=== PATIENT | female | born 1955 | race Caucasian/White ===

== ENCOUNTER 2019-02-05 19:19 | Emergency (ER) | payer OTHER, SELFPAY ==
[2019-02-05 19:20] VITALS: BP 187/98; PULSE 90; RESP 18; TEMP 36.7; O2SAT 96; BMI 33.8
--- NOTE | 2019-02-05 19:55 | RAD_ITS ---
STUDY: X-RAY CHEST REASON FOR EXAM: Female, 63 years old. Cough TECHNIQUE: PA and lateral views of the chest. COMPARISON: None. FINDINGS: There is hyperinflation of the lungs consistent with chronic obstructive lung disease (COPD). Lungs are clear. There is no demonstrated pleural abnormality. Sternal cerclage wires are present from a prior sternotomy. Mild cardiomegaly. Normal mediastinum and tristen. Normal visualized pulmonary arteries. Normal visualized aortic arch and descending thoracic aorta. Artificial heart valve. Normal visualized thoracic spine. Normal visualized ribs, clavicles, and shoulders. There is no demonstrated abnormality of the visualized soft tissue structures of the upper abdomen. RAD/Chest PA and Lateral IMPRESSION: No acute cardiopulmonary disease. COPD. Electronically Signed: Horace Jones DO at 20:18 EDT Tel , Service support ,
--- NOTE | 2019-02-05 20:59 | ED.DCSUM_ITS ---
History of Present Illness Chief Complaint: Cough Narrative: Patient presenting for evaluation due to cough. Patient reports that she was exposed to black mold in the house, and states that she has had slightly increasing cough. She has an underlying history of COPD. She denies any fevers chest pain. She denies significant shortness of breath associated with this. Patient's daughter wanted her checked out so the patient came to the emergency department. Past Medical History - Allergies and Home Meds Allergies/Adverse Reactions: Allergies cefuroxime [From Ceftin] Allergy (Verified 02/05/19 19:23) Hives ibuprofen Allergy (Verified 02/05/19 19:23) Hives Penicillins Allergy (Verified 02/05/19 19:23) Hives Sulfa (Sulfonamide Antibiotics) Allergy (Verified 02/05/19 19:23) Hives Primary Care Physician: CAROLYNE BLACK [Other] Past Medical History: - - COPD Smoking Status: Current every day smoker Review of Systems All systems negative except as indicated Respiratory: Reports: Cough Physical Exam Vital Signs/Narrative: Vital Signs Temp Pulse Resp BP Pulse Ox 02/05/19 19:20 98.0 F 90 18 187/98 H 96 General: Well nourished, Well developed, No Acute Distress Head: Normocephalic, Atraumatic Eyes: Perrl, EOMI ENT: Moist mucous membranes, No rhinorrhea Neck: Supple, Nontender Cardiovascular: Regular rate, Regular rhythm, No murmurs Respiratory: No distress, Chest nontender, Wheezing Abdomen: Soft, Nontender, Nondistended, Normal bowel sounds Back: Nontender, Normal Inspection Extremities: Nontender, No edema Skin: Normal color, No rash Neurological: Alert, Oriented x3, Cranial nerves II-XII grossly intact, Normal Strength, Normal Sensation Psychological: Normal affect, Normal Mood Diagnostic/Tx/Re-eval - Medical Decision Making Patient presented secondary to black mold exposure. She did have some mild wheezing. Chest x-ray was obtained which shows signs consistent with COPD. Patient likely has mild exacerbation secondary to her exposure to the irritants. Patient will be placed on a burst of prednisone. She was given reassurance an d discharged. ED Disposition - Plan for ED Patient: Disposition: Home or Assisted Living Diagnosis: COPD exacerbation Instructions: Copd Flare Prescriptions: Prednisone [Deltasone] 40 mg PO DAILY #10 tab Prescription Printed Referrals: CAROLYNE BLACK [Other] - 1 Week
[2019-02-05] MEDS: predniSONE 20 MG Tablet 40 MG PO (21:07)
== END 2019-02-05 21:09 | disposition home or self-care (01) ==
PROVIDERS: Emergency Provider Emergency Medicine
DX: J44.1 Chronic obstructive pulmonary disease with (acute) exacerbation (principal); Z77.120 Contact with and (suspected) exposure to mold (toxic); F17.200 Nicotine dependence, unspecified, uncomplicated
CPT/HCPCS: 71046; 99283

== ENCOUNTER 2019-10-15 13:23 | Emergency (ER) | payer OTHER, SELFPAY ==
[2019-10-15 13:25] VITALS: BP 167/83; PULSE 59; RESP 17; TEMP 36.6; O2SAT 97; BMI 31.9
--- NOTE | 2019-10-15 13:43 | ED.VIS.GEN ---
History of Present Illness Chief Complaint: Hypertension Informant: Patient Onset: - - Onset unknown. Took blood pressure today and was elevated Context: - - Unknown Timing: - - Unknown Quality: Blood pressure 168 systolic Location: Home Current Severity: Mild Maximum Severity: Mild Worsened by: Stressed with daughter Relieved by: Nothing Associated Symptoms: Tingling in her hand secondary to blood pressure cuff Narrative: Patient is a 64-year-old woman with known history of hypertension on 3 medications who presents with elevated blood pressure. She states she had a slight headache. She complains of tingling in her hand. This was the side she measured her blood pressure. She denies any visual, ocular auditory symptoms. Denies trouble with speech or swallowing. She denies clumsiness or falling. She denies cardiac or respiratory symptoms. She denies chest pain radiating to the back or back pain. She reports confrontation with daughter regarding living situation and specifically daughter's boyfriend living at her residence. 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 Status: Acute Past Medical History - Allergies and Home Meds Allergies/Adverse Reactions: Allergies cefuroxime [From Ceftin] Allergy (Verified 10/15/19 13:24) Hives ibuprofen Allergy (Verified 10/15/19 13:24) Hives Penicillins Allergy (Verified 10/15/19 13:24) Hives Sulfa (Sulfonamide Antibiotics) Allergy (Verified 10/15/19 13:24) Hives Primary Care Physician: NOT,DEFINED [NON-STAFF] - Prior records reviewed: Yes Surgical History: noncontributory Lives: With Family Smoking Status: Current every day smoker Alcohol: None Drugs: None Review of Systems General: Denies: Chills, Fever, Malaise, Subjective, Sweats Eyes: Denies: Visual changes - bilaterally, Blurred Vision - bilaterally, Diplopia ENT: Denies: Bilateral ear pain, Rhinorrhea, Sore throat Cardiovascular: Denies: Chest pain, Palpitations Respiratory: Denies: Dyspnea, Cough, Dyspnea on exertion, Orthopnea, Paroxysmal nocturnal dyspnea Gastrointestinal: Denies: Abdominal pain, Nausea, Vomiting, Diarrhea, Melena, Hematochezia Genitourinary: Denies: Dysuria, Hematuria, Frequency Musculoskeletal: Denies: Myalgias, Arthralgias, Neck pain, Back pain, Swelling, Extremity Pain, -, - Skin: Denies: Rash, Wounds Neurological: Reports: Headache. Denies: Weakness, Parasthesia, Numbness, -, - Psych: Reports: Anxiety. Denies: Depression, Suicidal thoughts, Suicidal ideations, -, - Endocrine: Denies: Polyuria, Polydipsia Hematologic: Denies: Easy bruising, Easy bleeding Physical Exam Vital Signs/Narrative: Vital Signs Temp Pulse Resp BP Pulse Ox 10/15/19 13:25 97.9 F 59 L 17 167/83 H 97 Inital Vital Signs reviewed: Yes General: Well nourished, Well developed, No Acute Distress Head: Normocephalic, Atraumatic Eyes: Perrl, EOMI. Negative for: Pale conjunctiva, Scleral icterus ENT: Moist mucous membranes, No rhinorrhea Neck: Supple, Nontender, No lymphadenopathy, No JVD Cardiovascular: Regular rate, Regular rhythm, No murmurs, - - Click noted secondary to prosthetic aortic valve Respiratory: No distress, CTA bilaterally, Chest nontender Abdomen: Soft, Nontender, Nondistended, Normal bowel sounds, No masses Rectal: Deferred Back: Nontender, Normal Inspection Extremities: Nontender, No edema Skin: Normal color, No rash, No Trauma. Negative for: Cyanosis, Diaphoresis, Jaundice Neurological: Alert, Oriented x3, Cranial nerves II-XII grossly intact, Normal Strength, Normal Sensation Psychological: Normal affect Diagnostic/Tx/Re-eval Laboratory Results 10/15/19 10/15/19 13:51 14:20 Sodium 139 Potassium 4.1 Chloride 107 Carbon Dioxide 27.0 Anion Gap 5 BUN 12 Creatinine 0.84 Estim Creat Clear Calc 51.06 Est GFR (MDRD) Af Amer 87 Est GFR (MDRD) Non-Af 72 BUN/Creatinine Ratio 14.2 Glucose 139 H Calcium 9.0 Urine Color Yellow Urine Clarity Cloudy Urine pH 7.0 Ur Specific [place] 1.010 Urine Protein 15 H Urine Glucose (UA) Normal Urine Ketones Negative Urine Occult Blood 150 H Urine Nitrite Positive H Urine Bilirubin Negative Urine Urobilinogen Normal Ur Leukocyte Esterase 25 H Urine RBC 0-5 SEEN Urine WBC 0-5 SEEN Ur Squamous Epith Cells 0-5 SEEN Urine Bacteria 3+ Urine Mucus 0 SEEN There is no evidence of endorgan injury. Patient has bacteria with positive nitrites. Will treat with short course of Macrobid. Since there is no evidence of endorgan injury no adjustments made to blood pressure meds. Her most recent blood pressure is 146 systolic. She was instructed follow-up with her primary care physician. - Medical Decision Making She was placed on a monitor. Will monitor blood pressure and a basic metabolic panel and UA were obtained to evaluate for endorgan injury. ED Disposition - Plan for ED Patient: Disposition: Home or Assisted Living Diagnosis: Hypertension, Bacteria in urine, long term care social worker current use of anticoagulant Prescriptions: Nitrofurantoin Macrocrystals [Macrobid] 100 mg PO Q12 #10 cap Transmission Status: Pending to [id number] Referrals: NOT,DEFINED [NON-STAFF] - Doctor,Your [STAFF PHYSICIAN] - 1-2 Weeks
[2019-10-15 14:11] LABS: Anion Gap 5 (5-15); BUN 12 mg/dL (7-18); BUN/Creat Ratio 14.2 RATIO (10-20); Chloride 107 mmol/L (98-107); Creatinine, Serum 0.84 mg/dL (0.55-1.02); EST Glomerular Filtration Rate 72 mL/min (>60); Est Glom Filt Rate - Afr Amer 87 mL/min (>60); Estimated Creatinine Clearance 51.06 ml/min; Glucose 139 mg/dL (74-106); Potassium 4.1 mmol/L (3.5-5.1); Sodium Level 139 mmol/L (136-145)
[2019-10-15 14:26] LABS: Mucous, Urine 0 SEEN /hpf (<or=2+)
[2019-10-15 14:31] LABS: Color, Urine Yellow (Yellow); Glucose, Dipstick Normal (Normal); Ketone-Dipstick Negative (Negative); Leukocyte Esterase-Dipstick 25 /ul (Negative); Nitrite-Dipstick Positive (Negative); Occult Blood-Urine 150 /ul (Negative); Protein-Dipstick 15 mg/dl (Negative); Urine Bilirubin Dipstick Negative (Negative); Urine Clarity Cloudy (Clear); Urine Urobilinogen Normal (Normal)
[2019-10-15 14:39] LABS: Bacteria 3+ /hpf (None Seen); Red Blood Cells-Urine 0-5 SEEN /hpf (0-5); Squamous Epithelial Cells - UA 0-5 SEEN /hpf (5-10); White Blood Cells 0-5 SEEN /hpf (0-5)
[2019-10-15 15:54] VITALS: BP 149/132; PULSE 59; RESP 18; O2SAT 95
[2019-10-15] MEDS: Nitrofurantoin Macrocrystals 100 MG Capsule PO (15:59)
== END 2019-10-15 16:04 | disposition home or self-care (01) ==
PROVIDERS: Emergency Provider Emergency Medicine
DX: R82.71 Bacteriuria (principal); I10 Essential (primary) hypertension; Z95.2 Presence of prosthetic heart valve; Z79.01 Long term (current) use of anticoagulants; Z79.899 Other long term (current) drug therapy; F17.200 Nicotine dependence, unspecified, uncomplicated
CPT/HCPCS: 80048; 81001; 99285; A4216

== ENCOUNTER 2019-12-26 13:43 | Emergency (ER) | payer OTHER, SELFPAY ==
[2019-12-26 13:44] VITALS: BP 144/104; PULSE 98; RESP 18; TEMP 36.9; O2SAT 97; BMI 32.2
--- NOTE | 2019-12-26 14:00 | ED.DCSUM_ITS ---
History of Present Illness Chief Complaint: Lower Extremity Injury Narrative: Next he 4-year-old female with past medical history of hypertension and diabetes presents with left foot pain. States it began hurting this morning. States that she was running around taking care of her great grandchild yesterday. [place] that she may have twisted it at some point yesterday. Denies any trauma. Describes it as aching. States she has been taking Tylenol with mild relief. Numbness or tingling. Past Medical History - Allergies and Home Meds Allergies/Adverse Reactions: Allergies cefuroxime [From Ceftin] Allergy (Verified 12/26/19 13:46) Hives ibuprofen Allergy (Verified 12/26/19 13:46) Hives Penicillins Allergy (Verified 12/26/19 13:46) Hives Sulfa (Sulfonamide Antibiotics) Allergy (Verified 12/26/19 13:46) Hives Primary Care Physician: Steffi Carlos DO [Primary Care Provider] - Surgical History: noncontributory Lives: Spouse/ Significant Other Smoking Status: Current every day smoker Alcohol: None Drugs: None Review of Systems General: Denies: Chills, Fever, Sweats Eyes: Denies: Visual changes - bilaterally, Diplopia ENT: Denies: Rhinorrhea, Sore throat Cardiovascular: Denies: Chest pain, Palpitations Respiratory: Denies: Dyspnea, Cough, Dyspnea on exertion Gastrointestinal: Denies: Abdominal pain, Nausea, Vomiting, Diarrhea, Melena, Hematochezia Genitourinary: Denies: Dysuria, Hematuria, Frequency Musculoskeletal: Reports: Arthralgias. Denies: Back pain, Extremity Pain Skin: Denies: Rash, Wounds Neurological: Denies: Headache, Weakness, Numbness Physical Exam Vital Signs/Narrative: Vital Signs Temp Pulse Resp BP Pulse Ox 12/26/19 13:44 98.4 F 98 18 144/104 H 97 Inital Vital Signs reviewed: Yes General: Well nourished, Well developed, No Acute Distress Head: Normocephalic, Atraumatic Eyes: Perrl, EOMI ENT: Moist mucous membranes, No rhinorrhea Neck: Supple, Nontender Cardiovascular: Regular rate, Regular rhythm, No murmurs Respiratory: No distress, CTA bilaterally, Chest nontender Abdomen: Soft, Nontender, Nondistended, Normal bowel sounds Back: Nontender, Normal Inspection Extremities: No edema, - - TTP of the left foot. Dorsolateral. No overlying skin changes. Skin: Normal color, No rash Neurological: Alert, Oriented x3, Cranial nerves II-XII grossly intact, Normal Strength, Normal Sensation Psychological: Normal affect, Normal Mood Diagnostic/Tx/Re-eval - Medical Decision Making Appears well nontoxic. Significant delay secondary to radiologic read. I cannot visualize an acute fracture. Likely brain. Patient will be advised on Mesfin wrap, ice, elevation, continue Tylenol at home. Asked to return for new or worsening symptoms. Patient agreeable and discharged home in stable condition. ED Disposition - Plan for ED Patient: Disposition: Home or Assisted Living Diagnosis: Strain of foot, left Instructions: ED Sprain Foot Referrals: Steffi Carlos DO [Primary Care Provider] -
--- NOTE | 2019-12-26 14:07 | RAD_ITS ---
STUDY: X-RAY - LEFT FOOT CLINICAL: Female, 64 years old. NO KNOWN INJURY. PAIN ON TOP OF LEFT FOOT. TECHNIQUE: 3 view(s) of the foot. COMPARISON: None. FINDINGS: Normal talus, calcaneus, and tarsal bones. Normal visualized subtalar, talonavicular, calcaneocuboid, tarsal and tarsometatarsal articulations. There is first metatarsal head bunion formation. Normal metatarsophalangeal joint of the great toe. Normal tibial and fibular sesamoid bones. Normal interphalangeal joint of the great toe. Normal phalanges of the great toe. Normal second through fifth metatarsophalangeal joints. Normal interphalangeal joints and phalanges of the lesser toes. The soft tissue structures are unremarkable. RAD/Foot min 3 Views IMPRESSION: First metatarsal head bunion. There is no evidence of fracture or dislocation. Electronically Signed: Romel Goldstein MD at 16:09 EDT , Service support ,
[2019-12-26 17:46] VITALS: BP 138/89
== END 2019-12-26 17:47 | disposition home or self-care (01) ==
PROVIDERS: Emergency Provider Emergency Medicine; PCP Family Medicine
DX: S99.922A Unspecified injury of left foot, initial encounter (principal); X50.1XXA Overexertion from prolonged static or awkward postures, initial encounter; Y93.9 Activity, unspecified; Y92.9 Unspecified place or not applicable; I10 Essential (primary) hypertension; E11.9 Type 2 diabetes mellitus without complications; Z79.84 Long term (current) use of oral hypoglycemic drugs; Z79.899 Other long term (current) drug therapy; F17.200 Nicotine dependence, unspecified, uncomplicated
CPT/HCPCS: 73630; 99282

== ENCOUNTER 2020-05-30 14:02 | Emergency (ER) | payer OTHER, SELFPAY ==
[2020-05-30 14:03] VITALS: BP 140/105; PULSE 74; RESP 17; TEMP 36.7; O2SAT 97; BMI 31.3
--- NOTE | 2020-05-30 14:26 | ED.DCSUM_ITS ---
History of Present Illness Chief Complaint: Complaint Informant: Patient Narrative: Patient is a 64-year-old female who presents to the emergency department for suprapubic abdominal discomfort. Her symptoms have been present since this past . She has had this before in the past related to urinary tract infections. Last time she was on an antibiotic for this was 4 months ago. She denies dysuria. At the onset of symptoms she did have blood in the urine but this since resolved. She is on Coumadin for history of aortic valve replacement. She just had her INR checked last week and it was in the 4 range. They had her increase her greens when eating which she has done. She denies any dysuria. She is on medications for urinary incontinence for the past year and a half. She states she does get frequent UTIs. She denies any systemic symptoms including any fever/chills. She denies any nausea/vomiting. No change in bowel habits. Past Medical History - Allergies and Home Meds Allergies/Adverse Reactions: Allergies cefuroxime [From Ceftin] Allergy (Verified 05/30/20 14:03) Hives ibuprofen Allergy (Verified 05/30/20 14:03) Hives Penicillins Allergy (Verified 05/30/20 14:03) Hives Sulfa (Sulfonamide Antibiotics) Allergy (Verified 05/30/20 14:03) Hives Primary Care Physician: Steffi Carlos DO [Primary Care Provider] - 3-5 Days if not improving Prior records reviewed: Yes Surgical History: noncontributory Smoking Status: Current every day smoker Review of Systems All systems negative except as indicated General: Denies: Chills, Fever, Sweats Eyes: Denies: Visual changes - bilaterally, Diplopia ENT: Denies: Rhinorrhea, Sore throat Cardiovascular: Denies: Chest pain, Palpitations Respiratory: Denies: Dyspnea, Cough, Dyspnea on exertion Gastrointestinal: Reports: Abdominal pain - Suprapubic. Denies: Nausea, Vomiting, Diarrhea, Melena, Hematochezia Genitourinary: Reports: Hematuria. Denies: Dysuria, Frequency Musculoskeletal: Denies: Back pain, Extremity Pain Skin: Denies: Rash, Wounds Neurological: Denies: Headache, Weakness, Numbness Physical Exam Vital Signs/Narrative: Vital Signs Temp Pulse Resp BP Pulse Ox 05/30/20 14:03 98.1 F 74 17 140/105 H 97 Inital Vital Signs reviewed: Yes General: Well nourished, Well developed, No Acute Distress Head: Normocephalic, Atraumatic Eyes: Perrl, EOMI ENT: Moist mucous membranes, No rhinorrhea Neck: Supple, Nontender Cardiovascular: Regular rate, Regular rhythm, No murmurs Respiratory: No distress, CTA bilaterally, Chest nontender Abdomen: Soft, Nontender, Nondistended, Normal bowel sounds Back: Nontender, Normal Inspection. Negative for: CVA tenderness Extremities: Nontender, No edema Skin: Normal color, No rash Neurological: Alert, Oriented x3, Normal Strength, Normal Sensation Psychological: Normal affect, Normal Mood Diagnostic/Tx/Re-eval - Medical Decision Making Patient presents to the emergency department for suprapubic abdominal discomfort and hematuria which resolved. She does get frequent UTIs and this is similar to her previous episodes. Upon arrival to the emergency department vital signs within normal limits. She does not appear in any acute distress. Abdominal exam is benign. Urinalysis obtained along with urine culture. Patient's urinalysis did come back positive for UTI. Will send for culture. Due to her allergies we will start her on Macrobid. We will have her follow-up with her PCP. Warning signs and symptoms which to return to the ED including develop any systemic symptoms or back pain significant for pyelonephritis are re viewed. She understands and is agreeable this plan. Discharged home in stable condition. All questions answered. ED Disposition - Plan for ED Patient: Disposition: Home or Assisted Living Diagnosis: Urinary tract infection Instructions: ED Bladder Infection, Female (Adult) Prescriptions: Nitrofurantoin Monohyd/M-Cryst [Macrobid 100 mg Capsule] 100 mg PO BID 5 Days #9 cap Transmission Status: Received by [facility]/pharmacy #[id number] Referrals: Steffi Carlos DO [Primary Care Provider] - 3-5 Days if not improving
[2020-05-30 14:30] LABS: Mucous, Urine 0 SEEN /hpf (<or=2+)
[2020-05-30 14:35] LABS: Color, Urine Yellow (Yellow); Glucose, Dipstick Normal (Normal); Ketone-Dipstick Negative (Negative); Leukocyte Esterase-Dipstick 500 /ul (Negative); Nitrite-Dipstick Negative (Negative); Occult Blood-Urine 150 /ul (Negative); Protein-Dipstick 30 mg/dl (Negative); Urine Bilirubin Dipstick Negative (Negative); Urine Clarity Cloudy (Clear); Urine Urobilinogen Normal (Normal)
[2020-05-30 14:54] LABS: White Blood Cells 25-50 SEEN /hpf (0-5)
[2020-05-30 14:55] LABS: Bacteria 1+ /hpf (None Seen); Red Blood Cells-Urine 10-25 SEEN /hpf (0-5); Squamous Epithelial Cells - UA 0-5 SEEN /hpf (5-10)
[2020-05-30] MEDS: Nitrofurantoin Macrocrystals 100 MG Capsule PO (15:09)
== END 2020-05-30 15:09 | disposition home or self-care (01) ==
PROVIDERS: Emergency Provider Emergency Medicine; PCP Family Medicine
DX: N39.0 Urinary tract infection, site not specified (principal); R31.9 Hematuria, unspecified; Z87.440 Personal history of urinary (tract) infections; Z79.01 Long term (current) use of anticoagulants; Z95.2 Presence of prosthetic heart valve; F17.200 Nicotine dependence, unspecified, uncomplicated
CPT/HCPCS: 81001; 87086; 87088; 87186; 99283

== ENCOUNTER 2020-10-06 18:22 | Emergency (ER) | payer SELFPAY ==
[2020-10-06 18:23] VITALS: BP 208/99; PULSE 82; RESP 14; TEMP 36.4; O2SAT 96; BMI 33.3
[2020-10-06 18:39] VITALS: BP 158/84; PULSE 69; RESP 20; O2SAT 94
--- NOTE | 2020-10-06 18:45 | EKG12_ITS ---
Test Reason : SYNCOPE Blood Pressure : / mmHG Vent. Rate : 070 BPM Atrial Rate : 070 BPM P-R Int : 176 ms QRS Dur : 116 ms QT Int : 428 ms P-R-T Axes : 057 076 033 degrees QTc Int : 462 ms Normal sinus rhythm Right bundle branch block Abnormal ECG Confirmed by LON KLEIN, SOHAIL ([id number]), editor house organ ANGELITA GUTIÉRREZ ([id number]) on 10/11/2020 9:10:27 AM Referred By: OSITO Confirmed By:GRACE FORREST MD
[2020-10-06 18:46] VITALS: O2SAT 94
--- NOTE | 2020-10-06 18:46 | ED.VISSUMM ---
- ER Visit Summary Date of Service: 10/06/20 Chief Complaint: [Shortness of breath] History of Present Illness: The patient is a 65 F [presents to the emergency department complaint of shortness of breath started today. Patient states that she was diagnosed with Covid 4 days ago and has had symptoms for about 5 days. Patient has history of COPD. Patient states she had a stressful day today and had to bring her daughter to the hospital because she was throwing up at work. Patient denies recent travel or surgery. Patient has history of an artificial aortic valve and is currently on Coumadin. She has not checked her INR in the last 2 weeks but has been compliant with her Coumadin. She denies any chest pain. She does have a little bit of a cough. She denies fever. She denies body aches.] Physical Examination: [HEENT-PERRLA, EOMI. Cranial nerves II through XII grossly intact. TMs clear. Mucous membranes moist. No adenopathy. Cardiovascular-regular rate and rhythm without murmur or ectopy Lungs-clear to auscultation, chest wall stable without crepitus or subcu emphysema Abdomen-normoactive bowel sounds, soft, nontender, no rebound or rigidity, no peritoneal signs. Extremities-intact ?4, normal range of motion, normal pulses, atraumatic] Test Results: [EKG obtained arrival shows sinus rhythm with a ventricular rate of 70 bpm with a right bundle branch block with no acute ST segment changes noted. CBC with differential showed a white count of 8.2, hemoglobin 14.8, hematocrit 46, placed 273. Chemistries unremarkable. INR was 2.6. Troponin was less than 0.01. Chest x-ray obtained 1 view interpreted by myself as no acute disease process. Patient radiology report pending.] Emergency Department Course and Treatment: [IV line established on arrival. Patient placed on a bus driver/monitor.] I did call in a referral to monoclonal antibody treatment. Patient is not hypoxic and she is in no respiratory distress. I feel she can follow-up as an outpatient. Treatment Plan: [Patient advised to pursue monoclonal antibody treatment and they should be contacting her for this. Patient advised to return if increasing shortness of breath or condition should worsen anyway.] Disposition: [Discharged home in stable condition.] Impression: [Covid URI Dyspnea] This note was generated with Dragon dictation software. It may contain incorrect words, spelling, and punctuation that were not noted in review of the chart prior to signing ED Disposition - Plan for ED Patient: Referrals: Steffi Carlos DO [Primary Care Provider] -
--- NOTE | 2020-10-06 19:00 | RAD_ITS ---
STUDY: X-RAY CHEST REASON FOR EXAM: Female, 65 years old. Dyspnea TECHNIQUE: Single frontal view of the chest. COMPARISON: 02/05/2019. FINDINGS: There is no new focal consolidation. Sternal cerclage wires are present from a prior sternotomy. The cardiac silhouette is within normal limits. Normal mediastinum and tristen. Normal visualized pulmonary arteries. Normal visualized aortic arch and descending thoracic aorta. Normal visualized thoracic spine. Normal visualized ribs, clavicles, and shoulders. There appear to be sutures within the right axilla. There is no demonstrated abnormality of the visualized soft tissue structures of the upper abdomen. RAD/Chest 1 View (Portable) IMPRESSION: No acute cardiopulmonary process. Electronically Signed: Cassandra Hdz MD at 20:34 EDT Tel , Service support ,
[2020-10-06 19:08] LABS: Absolute Lymphocyte Count 2.38 X10^3/uL (0.83-4.51); Basophil# 0.05 X10^3/uL; Basophil% 0.6 % (0-1); Eosinophil# 0.17 X10^3/uL; Eosinophils% 2.1 % (0-5); Hematocrit 45.9 % (37-47); Hemoglobin 14.8 g/dL (12.0-15.0); Lymphocyte # 2.38 X10^3/ul (0.83-4.51); Lymphocyte % 29.1 % (19-41); Mean Corp Hgb Conc 32.2 g/dL (32-36); Mean Corpuscular Hgb 29.8 pg (27.0-32.0); Mean Corpuscular Volume 92.4 fL (81-99); Mean Platelet Vol. 10.3 fl (6.2-12.0); Monocyte# 0.58 X10^3/uL; Monocyte% 7.1 % (0-10); NRBC Flagged by Analyzer 0 % (0-5); Neutrophil # 4.97 X10^3/uL (2.7-7.7); Neutrophil % 60.9 % (47-70); Platelet Count 273 K/mm3 (150-450); RBC Distribution Width CV 14.2 % (11.6-14.6); RBC Distribution Width SD 48.1 fl (35.1-43.9); Red Blood Count 4.97 M/mm3 (4.2-5.4); White Blood Count 8.2 K/mm3 (4.4-11.0)
[2020-10-06 19:17] LABS: International Normalized Ratio 2.6
[2020-10-06 19:25] LABS: Anion Gap 4 (5-15); BUN 13 mg/dL (7-18); BUN/Creat Ratio 14.2 RATIO (10-20); Calcium,Total 8.9 mg/dL (8.5-10.1); Chloride 109 mmol/L (98-107); Creatinine, Serum 0.91 mg/dL (0.55-1.02); EST Glomerular Filtration Rate 66 mL/min (>60); Est Glom Filt Rate - Afr Amer 80 mL/min (>60); Estimated Creatinine Clearance 46.51 ml/min; Glucose 135 mg/dL (74-106); Potassium 3.6 mmol/L (3.5-5.1); Sodium Level 139 mmol/L (136-145)
--- NOTE | 2020-10-06 19:50 | ED.DEP ---
ED Disposition - Plan for ED Patient: Instructions: Coronavirus Disease 2019 (COVID-19): Caring for Yourself or Others Referrals: Steffi Carlos DO [Primary Care Provider] - 3-5 Days
== END 2020-10-06 20:12 | disposition home or self-care (01) ==
LOC: ED 19:25
PROVIDERS: Emergency Provider Emergency Medicine; PCP Family Medicine
DX: U07.1 COVID-19 (principal); J06.9 Acute upper respiratory infection, unspecified; J44.9 Chronic obstructive pulmonary disease, unspecified; I45.10 Unspecified right bundle-branch block; I10 Essential (primary) hypertension; E11.9 Type 2 diabetes mellitus without complications; E78.00 Pure hypercholesterolemia, unspecified; Z95.2 Presence of prosthetic heart valve; Z79.01 Long term (current) use of anticoagulants; Z79.84 Long term (current) use of oral hypoglycemic drugs; Z79.899 Other long term (current) drug therapy; Z72.0 Tobacco use
CPT/HCPCS: 71045; 80048; 84484; 85025; 85610; 93005; 99283

== ENCOUNTER 2020-10-08 12:40 | Inpatient (IN) | payer MEDICARE, SELFPAY ==
[2020-10-08] VITALS (7 sets, daily range): BP systolic 113–149; BP diastolic 64–83; PULSE 66–80; RESP 15–22; TEMP 36.7–36.8; O2SAT 90–96; BMI 32.4; BMI 31.9
--- NOTE | 2020-10-08 12:52 | RAD_ITS ---
INDICATION: cp EXAMINATION/TECHNIQUE: X-RAY - XR Chest 1 View COMPARISON: 10/06/2020. FINDINGS: Median sternotomy wires present. The lungs are clear. The cardiomediastinal silhouette is unremarkable. No pleural effusion or pneumothorax. No acute osseous abnormalities. RAD/Chest 1 View (Portable) IMPRESSION: No acute radiographic abnormalities. Electronically Signed: Leland Puri MD at 13:52 EDT Tel , Service support ,
--- NOTE | 2020-10-08 12:53 | EKG12_ITS ---
Test Reason : CHEST OTHER Blood Pressure : / mmHG Vent. Rate : 068 BPM Atrial Rate : 068 BPM P-R Int : 176 ms QRS Dur : 112 ms QT Int : 422 ms P-R-T Axes : 057 074 036 degrees QTc Int : 448 ms Normal sinus rhythm Normal ECG Confirmed by LON KLEIN, SOHAIL ([id number]), field map editor ANGELITA GUTIÉRREZ ([id number]) on 10/11/2020 8:54:53 AM Referred By: GEENA Confirmed By:GRACE FORREST MD
--- NOTE | 2020-10-08 12:55 | ED.VIS.GEN ---
History of Present Illness Chief Complaint: Chest Other Narrative: Patient was diagnosed with about 5 days ago she has had symptoms for 5 or 6 days. She was coughing last night and developed sharp stabbing left-sided chest pain which is reproducible. No fever or chills she denies any myalgias. Her breathing is normal for her, she does have COPD history. No abdominal pain no myalgias no weakness. Past medical history: Hypertension, diabetes, COPD, history of aortic valve replacement Medications: Reviewed Social history: Continues to smoke Review of systems: All systems negative except as indicated General: No Fever Eyes: No visual changes ENT: No upper airway congestion, normal voice Neck: No neck pain Cardiovascular: Left-sided chest pain Respiratory: Cough, some shortness of breath but this is chronic and unchanged. Gastrointestinal: No abdominal pain, nausea vomiting or diarrhea Genitourinary: No dysuria Musculoskeletal: Denies myalgias no difficulty with ambulation Skin: No rash Neurological: No memory loss, confusion or any focal weakness Psych: No recent behavioral changes Hematologic: No easy bleeding or easy bruising Physical exam General: Patient appears chronically ill, she does not appear in any significant distress at this time. Head: Normocephalic, Atraumatic Eyes: Conjunctiva not pale ENT: Moist mucous membranes Neck: Supple, Nontender, No lymphadenopathy Cardiovascular: Regular rate, Regular rhythm Chest wall: There is reproducible chest wall pain on the left lower rib region. It is reproducible with palpation as well as movement. There is no contusion in that region. Respiratory: Coarse breath sounds bilaterally some end expiratory wheezing, however patient speaks in full sentences without any obvious respiratory distress. She is not tachypneic Abdomen: Soft, Nontender, Nondistended Back: Nontender, Normal Inspection. Negative for: CVA tenderness Extremities: Nontender, No edema Skin: Normal color, No rash Neurological: Alert, Normal Strength, Normal Sensation Psychological: Normal affect Past Medical History - Allergies and Home Meds Allergies/Adverse Reactions: Allergies cefuroxime [From Ceftin] Allergy (Verified 10/08/20 12:40) Hives ibuprofen Allergy (Verified 10/08/20 12:40) Hives Penicillins Allergy (Verified 10/08/20 12:40) Hives Sulfa (Sulfonamide Antibiotics) Allergy (Verified 10/08/20 12:40) Hives Primary Care Physician: Steffi Carlos DO [Primary Care Provider] - Surgical History: noncontributory Smoking Status: Current every day smoker Physical Exam Vital Signs/Narrative: Vital Signs Temp Pulse Resp BP Pulse Ox 10/08/20 12:40 98.3 F 80 17 125/64 H 90 Diagnostic/Tx/Re-eval Chest X-Ray - ED: 1 View, Read by ED Physician, Read by Radiologist, Normal, Heart, Lungs - Medical Decision Making Patient desaturated to 90 to 91% on room air however when ambulated she desaturated to 88% with just mild ambulation. Because of this I will admit, she has Covid and COPD and she still has wheezing therefore she could worsen. I gave her Decadron in the ED ED Disposition - Plan for ED Patient: Disposition: Home or Assisted Living Diagnosis: COVID-19, Hypoxia Referrals: Steffi Carlos DO [Primary Care Provider] -
[2020-10-08] MEDS: dexAMETHasone 10 MG/ML Vial 6 MG IV (13:20)
[2020-10-08 13:24] LABS: Absolute Neutrophil Count 9.7 X10^3/uL (2.0-7.7); Basophil# 0.06 X10^3/uL; Basophil% 0.5 % (0-1); Eosinophil# 0.14 X10^3/uL; Eosinophils% 1.1 % (0-5); Hematocrit 45.5 % (37-47); Hemoglobin 14.7 g/dL (12.0-15.0); Lymphocyte % 15.9 % (19-41); Mean Corp Hgb Conc 32.3 g/dL (32-36); Mean Corpuscular Hgb 29.6 pg (27.0-32.0); Mean Corpuscular Volume 91.5 fL (81-99); Mean Platelet Vol. 10.2 fl (6.2-12.0); Monocyte# 0.71 X10^3/uL; Monocyte% 5.6 % (0-10); NRBC Flagged by Analyzer 0 % (0-5); Neutrophil # 9.65 X10^3/uL (2.7-7.7); Neutrophil % 76.5 % (47-70); Platelet Count 301 K/mm3 (150-450); RBC Distribution Width SD 46.9 fl (35.1-43.9); Red Blood Count 4.97 M/mm3 (4.2-5.4); White Blood Count 12.6 K/mm3 (4.4-11.0)
[2020-10-08 13:35] LABS: ALB/GLOB Ratio 0.9 RATIO (0.9-2.4); AST(SGOT) 28 U/L (15-37); Alanine Aminotransfer ALT/SGPT 31 U/L (13-56); Albumin, Serum 3.7 g/dL (3.2-5.0); Alkaline Phosphatase 125 U/L (45-117); Anion Gap 5 (5-15); BUN 15 mg/dL (7-18); BUN/Creat Ratio 14.9 RATIO (10-20); Calcium,Total 8.8 mg/dL (8.5-10.1); Chloride 109 mmol/L (98-107); Creatinine, Serum 1.01 mg/dL (0.55-1.02); EST Glomerular Filtration Rate 59 mL/min (>60); Est Glom Filt Rate - Afr Amer 71 mL/min (>60); Globulin 4.3 g/dL (2.2-4.2); Glucose 155 mg/dL (74-106); Potassium 3.6 mmol/L (3.5-5.1); Sodium Level 140 mmol/L (136-145)
[2020-10-08 13:36] LABS: International Normalized Ratio 2.4; Prothrombin Time (Protime)PT. 25.1 SECONDS (11.7-14.9)
--- NOTE | 2020-10-08 14:48 | PCM.HP.STD ---
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 Patient felt like she was getting her allergies. Patient lives with her granddaughter who had COVID-19 and was coming out of isolation when the patient started becoming ill. Was tested for COVID-19 and was tested positive roughly 5 days ago. Since then, she has progressively just felt more short of breath. She denies any anosmia nor dysgeusia. Is coughing but is nonproductive. No fever or chills. Presented to the emergency room where she had chest x-ray was unremarkable. She was 90% on room air but with ambulation dropped down to 88%. Patient received one-time dose of dexamethasone. Patient did receive her first shot of 2 shot vaccination regimen for COVID-19. [] Past Medical History Past Medical History (Chronic Problems): Chronic Problems (Last Updated 10/08/20 @ 14:[address] Mendoza Alfonso DO) Hypertension (Chronic) Medical History: Medical History (Last Updated 10/08/20 @ 14:[address] Mendoza Alfonso DO) COPD (chronic obstructive pulmonary disease) J44.9 HTN (hypertension) I10 Allergies cefuroxime [From Ceftin] Allergy (Verified 10/08/20 12:40) Hives ibuprofen Allergy (Verified 10/08/20 12:40) Hives Penicillins Allergy (Verified 10/08/20 12:40) Hives Sulfa (Sulfonamide Antibiotics) Allergy (Verified 10/08/20 12:40) Hives Home Medications: Ambulatory Orders Medication Instructions Recorded Albuterol IH (ProAir) [Proair Hfa 1 puff INHALATION Q4H PRN PRN 02/05/19 (SP)Vent Pts] Fluoxetine [Prozac] 40 mg PO BID 02/05/19 Glucosamine Sulfate Dipot Chlr 1,000 mg PO DAILY 02/05/19 [Glucosamine Sulfate] Losartan Potassium 100 mg PO DAILY 02/05/19 Metformin HCl [Metformin ER 500 mg PO DAILY 02/05/19 Osmotic] Multivit-Min/Iron/Folic/Lutein 1 ea PO DAILY 02/05/19 [Centrum Silver Women Tablet] [place]-3 Fatty Acids/Fish Oil [Fish 1 ea PO DAILY 02/05/19 Oil 1,000 mg Capsule] Warfarin Sodium 6 mg PO QHS 02/05/19 Rosuvastatin Calcium 40 mg PO QHS 10/15/19 Darifenacin Hydrobromide 7.5 mg PO DAILY 10/06/20 [Darifenacin ER] Surgical History: Surgical History (Last Updated 10/08/20 @ 14:[address] Mendoza Alfonso DO) Heart valve replaced Z95.2 Smoking Status: Heavy Smoker (>10/day) Tobacco Use: Cigarettes Alcohol: None Drugs: None - *Family History Maternal History Items: COPD Review of Systems Constitutional: Denies: Anorexia, Chills, Fever Eyes: Denies: Blurred vision, Double vision HEENT: Denies: Head Aches, Sinus Congestion, Sinus Drainage Cardiovascular: Reports: Chest Pain - with coughing Respiratory: Reports: Cough, Shortness of Breath. Denies: Sputum production Gastrointestinal: Reports: Abdominal Pain, Diarrhea Genitourinary: Denies: Dysuria Hematologic/ Lymphatic: Denies: Easy Bruising, Easy Bleeding, Hx of blood clot Comment: All review of systems were negative except as mentioned above in the history of present illness and the other review of systems. VTE Information - Inpt Only VTE Present on Admission: No VTE Mechan Device Prophylaxis: None VTE Pharm Prophylaxis ordered?: Yes Patient Problems: Active and Suspected Problems (Last Updated 10/08/20 @ 14:[address] Mendoza Alfonso DO) COVID-19 (Acute) Hypoxia (Acute) - Physical Exam Vitals/I&O's: Vital Signs Temp Pulse Resp BP Pulse Ox 36.8 C 67 15 113/82 H 96 10/08/20 12:40 10/08/20 14:20 10/08/20 14:20 10/08/20 14:20 10/08/20 14:20 Oxygen Flow Rate (L/min) 2 Oxygen Delivery Method Nasal Cannula Weight: 77.9 kg Body Mass Index (BMI) 32.4 General: Alert, No apparent distress HEENT: Atraumatic, Normocephalic Oral: Moist Mucosa, No Gingival or Mucosal Lesions/ Ulcerations Neck: No Nodes, Thyroid Normal Size and Texture Lungs: Diminished, Wheezes Cardiovascular: Regular rate, Regular Rhythm, Normal S1, Normal S2, No murmurs Abdomen: Bowel Sounds Present, Soft, Non Tender, Non-Distended, No Hepato-splenomegaly Extremities: No edema, No Calf Tenderness Skin: No rashes, No breakdown Musculoskeletal: No Tenderness to Palpation of Joints or Extremities, No Muscle Wasting Psych/Mental Status: Normal Affect, Appropriate Laboratory Results 10/08/20 13:10: WBC 12.6 H, RBC 4.97, Hgb 14.7, Hct 45.5, MCV 91.5, MCH 29.6, MCHC 32.3, RDW Std Deviation 46.9 H, RDW Coeff of Haylie 14.0, Plt Count 301, MPV 10.2, Immature Gran % (Auto) 0.400, Neut % (Auto) 76.5 H, Lymph % (Auto) 15.9 L, [place] % (Auto) 5.6, Eos % (Auto) 1.1, Baso % (Auto) 0.5, Absolute Neuts (auto) 9.7 H, Absolute Lymphs (auto) 2.00, Nucleated RBC % 0 10/08/20 13:10: Sodium 140, Potassium 3.6, Chloride 109 H, Carbon Dioxide 26.0, Anion Gap 5, BUN 15, Creatinine 1.01, Estim Creat Clear Calc 41.90, Est GFR (MDRD) Af Amer 71, Est GFR (MDRD) Non-Af 59 L, BUN/Creatinine Ratio 14.9, Glucose 155 H, Calcium 8.8, Total Bilirubin 0.90, AST 28, ALT 31, Alkaline Phosphatase 125 H, Total Protein 8.0, Albumin 3.7, Globulin 4.3 H, Albumin/Globulin Ratio 0.9 10/08/20 13:10: PT 25.1 H, INR 2.4 Chest x-ray personally reviewed and showed sternal wires. No infiltrate no pulmonary vascular congestion. Assessment/Plan All Active Problems (Last Updated 10/08/20 @ 14:[address] 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 Acute COPD exacerbation Patient did have some hypoxia when ambulated though mild. At rest, patient otherwise feels well. Exam has audible wheezing. Chest x-ray does not show the typical COVID-19 findings. I feel her findings are more consistent with acute exacerbation of COPD likely precipitated by her underlying COVID-19 infection. Plan is supportive and continue with steroids. In light of the COVID-19 we will continue with the dexamethasone and continue with her home dose metered-dose inhaler of albuterol. She will need evaluated for home oxygen upon discharge. 2. Acute COVID-19 infection No obvious infiltrate on x-ray Plan is to continue with dexamethasone Hold off on remdesivir as patient is currently not on any oxygen with rest 3. History of heart valve replacement Patient states that it is a mechanical heart valve INR is 2.4 Continue with warfarin 4. VTE prophylaxis: Not indicated as patient is already anticoagulated 5. Advanced care planning: Discussed with the patient. Patient is unsure but okay with short-term intubation. Therefore patient will be left full CODE STATUS at this time. Inpatient E&M: 58062 Init Hosp L2
[2020-10-08 17:10] LABS: Bedside Glucose 174 mg/dL (70-110)
[2020-10-08] MEDS: 0.9% Saline Lock 10 ML Syringe IV (18:33)
--- NOTE | 2020-10-08 18:37 | NURSING ---
Patient sating at 91% on room air. Reapplied oxygen therapy via NC at 1L. O2 sats increased to 94%. Will continue to monitor.
[2020-10-08] MEDS: Atorvastatin Calcium 80 MG Tablet PO (21:28)
[2020-10-08] MEDS: FLUoxetine 20 MG Capsule 40 MG PO (21:28)
[2020-10-09 03:05] VITALS: BP 145/78; PULSE 68; RESP 18; TEMP 36.5; O2SAT 98
[2020-10-09 04:07] LABS: Absolute Lymphocyte Count 1.31 X10^3/uL (0.83-4.51); Absolute Neutrophil Count 9.8 X10^3/uL (2.0-7.7); Basophil# 0.01 X10^3/uL; Basophil% 0.1 % (0-1); Hematocrit 42.4 % (37-47); Hemoglobin 13.5 g/dL (12.0-15.0); Lymphocyte # 1.31 X10^3/ul (0.83-4.51); Lymphocyte % 11.4 % (19-41); Mean Corp Hgb Conc 31.8 g/dL (32-36); Mean Corpuscular Hgb 28.8 pg (27.0-32.0); Mean Corpuscular Volume 90.6 fL (81-99); Mean Platelet Vol. 10.3 fl (6.2-12.0); Monocyte# 0.34 X10^3/uL; NRBC Flagged by Analyzer 0 % (0-5); Neutrophil # 9.79 X10^3/uL (2.7-7.7); Neutrophil % 85.1 % (47-70); Platelet Count 284 K/mm3 (150-450); RBC Distribution Width CV 13.8 % (11.6-14.6); RBC Distribution Width SD 45.7 fl (35.1-43.9); Red Blood Count 4.68 M/mm3 (4.2-5.4); White Blood Count 11.5 K/mm3 (4.4-11.0)
[2020-10-09 04:24] LABS: ALB/GLOB Ratio 0.8 RATIO (0.9-2.4); AST(SGOT) 29 U/L (15-37); Alanine Aminotransfer ALT/SGPT 28 U/L (13-56); Albumin, Serum 3.3 g/dL (3.2-5.0); Alkaline Phosphatase 116 U/L (45-117); Anion Gap 5 (5-15); BUN 17 mg/dL (7-18); BUN/Creat Ratio 20.7 RATIO (10-20); Calcium,Total 8.9 mg/dL (8.5-10.1); Chloride 107 mmol/L (98-107); Creatinine, Serum 0.82 mg/dL (0.55-1.02); EST Glomerular Filtration Rate 74 mL/min (>60); Est Glom Filt Rate - Afr Amer 90 mL/min (>60); Estimated Creatinine Clearance 51.61 ml/min; Globulin 4.2 g/dL (2.2-4.2); Glucose 184 mg/dL (74-106); Potassium 3.9 mmol/L (3.5-5.1); Protein, Total 7.5 g/dL (6.4-8.2); Sodium Level 137 mmol/L (136-145)
[2020-10-09 04:25] LABS: International Normalized Ratio 3.1; Prothrombin Time (Protime)PT. 31.3 SECONDS (11.7-14.9)
--- NOTE | 2020-10-09 07:54 | CON.PCM_ITS ---
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 Patient was diagnosed with COVID-19 approximately 5 days ago. Patient estimates that she had symptoms 5 to 6 days prior to that test. Patient reports she has a history of COPD, but is unclear on the severity. Patient reportedly follows with Dr. Martinez in [place]. Patient does not use an inhaler routinely as an outpatient. Patient does report that she has been compliant with her anticoagulation secondary to an aortic valve replacement. Patient denies being placed on any medication since her diagnosis of COVID-19. In the ER, patient was saturating 90% on room air, but was otherwise hemodynamically stable. Patient does not use supplemental oxygen at baseline. Patient reportedly did desaturate with minimal ambulation, so she was placed on Decadron and admitted to the cohort unit for further evaluation. Since being admitted to the hospital, patient feels subjectively improved compared to previous. Patient is not reporting any hemoptysis or other signs of bleeding. Patient does state that she has had a harsh cough that she believes is improved. Patient states her abdominal/chest pain is also improved. This can be reproduced with palpation. Patient does report that she continues to smoke. Patient is unaware of the severity of her lung disease, but states that she has had pulmonary function test previously. Patient states her doctor yells at me for continuing to smoke. Patient does not require oxygen at baseline. Patient does report that she has received her first dose of COVID-19 vaccination. Patient does state that she was checked for sleep apnea approximately 8 years ago. Patient believes her weight is slightly reduced from that time. Patient does not believe that she snores, but does tend to sleep on her side for better sleep. Review of systems otherwise negative from a constitutional, HEENT, respiratory, cardiovascular, GI, genitourinary, musculoskeletal, skin, neurologic, psychiatric and hematologic system unless stated above. Past Medical History Past Medical History (Chronic Problems): Chronic Problems (Last Updated 10/08/20 @ 14:[address] Mendoza Alfonso DO) Hypertension (Chronic) Medical History: Medical History (Last Updated 10/08/20 @ 14:[address] Mendoza Alfonso DO) COPD (chronic obstructive pulmonary disease) J44.9 HTN (hypertension) I10 Allergies cefuroxime [From Ceftin] Allergy (Verified 10/08/20 12:40) Hives ibuprofen Allergy (Verified 10/08/20 12:40) Hives Penicillins Allergy (Verified 10/08/20 12:40) Hives Sulfa (Sulfonamide Antibiotics) Allergy (Verified 10/08/20 12:40) Hives Home Medications: Ambulatory Orders Medication Instructions Recorded Albuterol IH (ProAir) [Proair Hfa 1 puff INHALATION Q4H PRN PRN 02/05/19 (SP)Vent Pts] Fluoxetine [Prozac] 40 mg PO BID 02/05/19 Glucosamine Sulfate Dipot Chlr 1,000 mg PO DAILY 02/05/19 [Glucosamine Sulfate] Losartan Potassium 100 mg PO DAILY 02/05/19 Metformin HCl [Metformin ER 500 mg PO DAILY 02/05/19 Osmotic] Multivit-Min/Iron/Folic/Lutein 1 ea PO DAILY 02/05/19 [Centrum Silver Women Tablet] [place]-3 Fatty Acids/Fish Oil [Fish 1 ea PO DAILY 02/05/19 Oil 1,000 mg Capsule] Warfarin Sodium 6 mg PO QHS 02/05/19 Rosuvastatin Calcium 40 mg PO QHS 10/15/19 Darifenacin Hydrobromide 7.5 mg PO DAILY 10/06/20 [Darifenacin ER] Surgical History: Surgical History (Last Updated 10/08/20 @ 14:[address] Mendoza Alfonso DO) Heart valve replaced Z95.2 Smoking Status: Heavy Smoker (>10/day) Tobacco Use: Cigarettes Alcohol: None Drugs: None - *Family History Maternal History Items: COPD Review of Systems Comment: See HPI Patient Problems: Active and Suspected Problems (Last Updated 10/08/20 @ 14:[address] Mendoza Alfonso DO) Aortic valve replaced (Acute) exterminator helper termite current use of anticoagulant (Acute) COVID-19 (Acute) Hypoxia (Acute) COPD exacerbation (Acute) Objective: Chest x-ray was personally reviewed and shows no acute infiltrates. Patient does have sternal wires and signs of an aortic valve replacement. - Physical Exam Vitals/I&O's: Vital Signs Temp Pulse Resp BP Pulse Ox 36.5 C L 68 18 145/78 H 98 10/09/20 03:05 10/09/20 03:05 10/09/20 03:05 10/09/20 03:05 10/09/20 03:05 Oxygen Flow Rate (L/min) 1 Oxygen Delivery Method Nasal Cannula Weight: 77.9 kg Body Mass Index (BMI) 31.9 Intake and Output for Last 24 Hours 10/07/20 10/08/20 10/09/20 23:59 23:59 23:59 Intake Total 800 / 800 350 / 350 Balance 800 / 800 350 / 350 General: Alert, Oriented x3, Cooperative, No apparent distress, - - No conversational dyspnea. Obese. HEENT: Atraumatic, PERRLA, EOMI, Normocephalic, - - No scleral icterus or injection noted. Nasal cannula in place. Oral: Moist Mucosa, No Gingival or Mucosal Lesions/ Ulcerations, - - Mallampati 3 Neck: Supple, No JVD, No Nodes, Trachea Midline Lungs: No rhonchi, No rales, Diminished, Wheezes - Only at end exhalation Cardiovascular: Regular rate, Regular Rhythm, Normal S1, Normal S2, No murmurs, No rub noted, No Gallop Abdomen: Bowel Sounds Present, Soft, Non Tender, Non-Distended, Obese Extremities: No clubbing, No cyanosis, No edema Skin: No rashes, No breakdown Musculoskeletal: No Tenderness to Palpation of Joints or Extremities Lymphatic: No Cervical, Supraclavicular, or Inguinal Adenopathy Neurological: Cranial nerves II-XII grossly intact, Neuro grossly intact, Motor Exam 5/5 strength throughout Psych/Mental Status: Alert and oriented to time, place, person, mood and affect Laboratory Results 10/08/20 13:10: WBC 12.6 H, RBC 4.97, Hgb 14.7, Hct 45.5, MCV 91.5, MCH 29.6, MCHC 32.3, RDW Std Deviation 46.9 H, RDW Coeff of Haylie 14.0, Plt Count 301, MPV 10.2, Immature Gran % (Auto) 0.400, Neut % (Auto) 76.5 H, Lymph % (Auto) 15.9 L, [place] % (Auto) 5.6, Eos % (Auto) 1.1, Baso % (Auto) 0.5, Absolute Neuts (auto) 9.7 H, Absolute Lymphs (auto) 2.00, Nucleated RBC % 0 10/08/20 13:10: Sodium 140, Potassium 3.6, Chloride 109 H, Carbon Dioxide 26.0, Anion Gap 5, BUN 15, Creatinine 1.01, Estim Creat Clear Calc 41.90, Est GFR (MDRD) Af Amer 71, Est GFR (MDRD) Non-Af 59 L, BUN/Creatinine Ratio 14.9, Glucose 155 H, Calcium 8.8, Total Bilirubin 0.90, AST 28, ALT 31, Alkaline Phosphatase 125 H, Total Protein 8.0, Albumin 3.7, Globulin 4.3 H, Albumin/Globulin Ratio 0.9 10/08/20 13:10: PT 25.1 H, INR 2.4 10/08/20 17:05: POC Glucose 174 H 10/09/20 03:45: WBC 11.5 H, RBC 4.68, Hgb 13.5, Hct 42.4, MCV 90.6, MCH 28.8, MCHC 31.8 L, RDW Std Deviation 45.7 H, RDW Coeff of Haylie 13.8, Plt Count 284, MPV 10.3, Immature Gran % (Auto) 0.400, Neut % (Auto) 85.1 H, Lymph % (Auto) 11.4 L, [place] % (Auto) 3.0, Eos % (Auto) 0.0, Baso % (Auto) 0.1, Absolute Neuts (auto) 9. 8 H, Absolute Lymphs (auto) 1.31, Nucleated RBC % 0 10/09/20 03:45: PT 31.3 H, INR 3.1 10/09/20 03:45: Sodium 137, Potassium 3.9, Chloride 107, Carbon Dioxide 25.0, Anion Gap 5, BUN 17, Creatinine 0.82, Estim Creat Clear Calc 51.61, Est GFR (MDRD) Af Amer 90, Est GFR (MDRD) Non-Af 74, BUN/Creatinine Ratio 20.7 H, Glucose 184 H, Calcium 8.9, Total Bilirubin 0.50, AST 29, ALT 28, Alkaline Phosphatase 116, Total Protein 7.5, Albumin 3.3, Globulin 4.2, Albumin/Globulin Ratio 0.8 L Current Medications Acetaminophen (Acetaminophen 325 Mg Tablet) 650 mg PO Q6H PRN PRN PRN Reason: Pain Score 1-10/Temp > 100.7 F Albuterol Sulfate (Albuterol Ih 8.5 Gm (Proair) Inhaler (200 Puffs)) 1 puff INHALATION Q4H PRN PRN PRN Reason: DYSPNEA Atorvastatin Calcium (Atorvastatin Calcium 80 Mg Tablet) 80 mg PO QHS [facility] Last Admin: 10/08/20 21:28 Dose: 80 mg Documented by: Dexamethasone (Dexamethasone 4 Mg Tablet) 6 mg PO DAILYCM [facility] Fluoxetine HCl (Fluoxetine 20 Mg Capsule) 40 mg PO BID [facility] Last Admin: 10/08/20 21:28 Dose: 40 mg Documented by: Sodium Chloride () 250 mls @ 15 mls/hr IV .[id number] PRN PRN Reason: Saline Flush Sodium Chloride () 250 mls @ 15 mls/hr IV .[id number] PRN PRN Reason: Additional IVPB Infusion Losartan Potassium (Losartan Potassium 100 Mg Tablet) 100 mg PO DAILY [facility] Metformin HCl (Metformin (Xr) 500 Mg Tablet) 500 mg PO DAILYCM [facility] Ondansetron HCl (Ondansetron 4 Mg/2 Ml Vial) 4 mg IV Q8H PRN PRN PRN Reason: NAUSEA/VOMITING Sodium Chloride (0.9% Saline Lock 10 Ml Syringe) 10 - 40 ml IV UD PRN PRN Reason: SALINE FLUSH Last Admin: 10/08/20 18:33 Dose: 10 ml Documented by: Tolterodine Tartrate (Tolterodine Tartrate 2 Mg Cap.Sa) 2 mg PO DAILY [facility] Warfarin Sodium (Warfarin 6 Mg Tablet) 6 mg PO DAILY@1700 [facility] Last Admin: 10/08/20 18:32 Dose: 6 mg Documented by: Clinical Impression(s) from Imaging Studies Chest X-Ray 10/08/20 12:52 IMPRESSION: No acute radiographic abnormalities. Electronically Signed: Leland Puri MD at 13:52 EDT Tel , Service support , Assessment/Plan All Active Problems (Last Updated 10/08/20 @ 14:[address] Mendoza Alfonso, DO) Aortic valve replaced (Acute) [facility] current use of anticoagulant (Acute) COVID-19 (Acute) Hypoxia (Acute) COPD exacerbation (Acute) RECOMMENDATIONS: 1. Continue Decadron therapy 2. Out of the window for benefit from remdesivir 3. Walking oximetry prior to discharge. Patient to acquire pulse oximeter for home 4. Potential discharge on supplemental oxygen with activity later today 5. Consider initiation of long-acting combination bronchodilators such as Anoro on discharge 6. Follow-up with primary flexographic press helper in 2 to 3 weeks for reevaluation of need for supplemental oxygen IMPRESSIONS: 1. Acute COPD exacerbation secondary to COVID-19 Clinical suspicion for an acute exacerbation of COPD secondary to COVID- 19. Patient does not have significant infiltrates on chest x-ray to suggest progression of disease. Given patient is 11 to 12 days out, remdesivir is not indicated. Decadron will be helpful. Anticipate a 10-day course of Decadron. Patient could be evaluated for supplemental oxygen. If patient is able to tolerate 6 L or less, discharged on supplemental oxygen with follow-up with primary flexographic press helper would be reasonable. The addition of a combination bronchodilator such as Anoro may be helpful in reducing cough in the acute period. 2. Costochondritis versus muscle strain secondary to cough associated with problem #1 Recommend NSAIDs. Patient should have improved cough with Decadron therapy. No signs or symptoms of pneumothorax, pneumomediastinum or other visceral complications. 3. History of aortic valve replacement/obesity/tobacco abuse/multiple allergies Complicates care, management, recovery and prognosis. Okay to continue Coumadin from my perspective. Will need to watch blood sugars closely given addition of Decadron therapy. Inpatient E&M: 89699 Init Hosp L2
[2020-10-09] MEDS: FLUoxetine 20 MG Capsule 40 MG PO (09:14)
[2020-10-09] MEDS: metFORMIN (XR) 500 MG Tablet PO (09:14)
[2020-10-09] MEDS: dexAMETHasone 4 MG Tablet 6 MG PO (09:15)
[2020-10-09] MEDS: Tolterodine Tartrate 2 MG CAP.SA PO (09:15)
[2020-10-09] MEDS: Losartan Potassium 100 MG Tablet PO (09:15)
[2020-10-09 09:18] VITALS: BP 137/52; PULSE 69; RESP 18; TEMP 36.5; O2SAT 99
[2020-10-09 09:30] VITALS: PULSE 88
--- NOTE | 2020-10-09 09:49 | PCM.DC ---
- Discharge Diagnoses Current Active Problems: Current Active and Chronic Problems (Last Updated 10/08/20 @ 14:[address] Mendoza Alfonso, DO) Hypertension (Chronic) Aortic valve replaced (Acute) USP current use of anticoagulant (Acute) COVID-19 (Acute) Hypoxia (Acute) COPD exacerbation (Acute) You will use the following diet at home:: No restrictions Your food should be the consistency of: Regular Your liquids should be the consistency of: Regular/Thin Discharge Activity: Return to Normal Activity Call your doctor if you observe: Fever of 101 or Higher, Shortness of breath Additional Instructions: Self isolate for at least 20 days since symptoms began or the first postive COVID-19 test (09/30-10/19/2020) AND at least one day (24 hours) have passed since resolution of fever without the use of fever-reducing agents AND improvement of symptoms (e.g., cough, shortness of breath) When around people in the same room, wear a face mask. Individuals also in the room should wear a mask. If possible, use a different bathroom and bedroom. Perform adequate hand hygiene. Avoid sharing dishes, glasses, etc. You may get your COVID-19 vaccination on October 25. Allergies/Adverse Reactions: Allergies cefuroxime [From Ceftin] Allergy (Verified 10/08/20 12:40) Hives ibuprofen Allergy (Verified 10/08/20 12:40) Hives Penicillins Allergy (Verified 10/08/20 12:40) Hives Sulfa (Sulfonamide Antibiotics) Allergy (Verified 10/08/20 12:40) Hives Medications to take at Discharge Albuterol IH (ProAir) [Proair Hfa] 1 puff INHALATION Q4H PRN PRN 02/05/19 Fluoxetine [Prozac] 40 mg PO BID 02/05/19 Glucosamine Sulfate Dipot Chlr [Glucosamine Sulfate] 1,000 mg PO DAILY 02/05/19 Losartan Potassium 100 mg PO DAILY 02/05/19 Metformin HCl [Metformin ER Osmotic] 500 mg PO DAILY 02/05/19 Multivit-Min/Iron/Folic/Lutein [Centrum Silver Women Tablet] 1 ea PO DAILY 02/05/19 [place]-3 Fatty Acids/Fish Oil [Fish Oil 1,000 mg Capsule] 1 ea PO DAILY 02/05/19 Warfarin Sodium 6 mg PO QHS 02/05/19 Rosuvastatin Calcium 40 mg PO QHS 10/15/19 Darifenacin Hydrobromide [Darifenacin ER] 7.5 mg PO DAILY 10/06/20 Dexamethasone 6 mg PO DAILY #8 tablet 10/09/20 The following prescriptions were given: Dexamethasone 6 mg PO DAILY #8 tablet Transmission Status: Pending to [facility]/pharmacy #[id number] Orders to be completed after discharge: COVID: Outpatient Monoclonal Antibody Referral Location: None Selected Primary Care Physician: Steffi Carlos DO [Primary Care Provider] - Within 2 Weeks Test Results: Test results from this visit will be discussed in further detail at your follow-up appointment, if applicable. Proposed Discharge Date: 10/09/20
--- NOTE | 2020-10-09 09:51 | PCM.DC.SUM ---
Discharge Date and Diagnosis - Problem List Patient Problems: Active and Suspected Problems (Last Updated 10/08/20 @ 14:[address] Mendoza Alfonso DO) COVID-19 (Acute) Hypoxia (Acute) COPD exacerbation (Acute) Date of Admission: 10/08/20 Date of Discharge: 10/09/20 - Primary Discharge Diagnosis Acute Problems: Active Problems (Last Updated 10/08/20 @ 14:[address] 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 Mendoza Alfonso DO) Hypertension (Chronic) Hospital Course and Treatment Imaging Results: Clinical Impression(s) from Imaging Studies Chest X-Ray 10/08/20 12:52 IMPRESSION: No acute radiographic abnormalities. Electronically Signed: Leland Puri MD at 13:52 EDT Tel , Service support , Operations: None Procedures: None Summary of Care Provided: The patient is a 65 year old F presents with 1 week history of shortness of breath. Patient was tested positive for COVID-19 5 days prior to arrival. Patient is progressively gotten more short of breath. Patient had unremarkable chest x-ray but was ambulated pulse ox dropped down to 88%. Patient had some audible wheezing when examined the . Today lung exam is slightly improved. Patient was seen in consultation by pulmonology. Is the feeling that patient had an acute exacerbation of COPD related with her COVID-19. Patient will be on dexamethasone to complete a 10-day course. Patient was not sick enough to warrant remdesivir. Patient will be assessed for amatory pulse ox and does require oxygen an addendum will be made to this discharge summary. Patient will need to isolate for approximately 20 days after the onset of her symptoms. Patient is scheduled to have a COVID-19 vaccination, her second shot, on October 25. Patient may keep that appointment as she will be done with her isolation at that time. [] Patient Problems: Active and Suspected Problems (Last Updated 04/17/21 @ 14:[address] Mendoza Alfonso, DO) COVID-19 (Acute) Hypoxia (Acute) COPD exacerbation (Acute) - Physical Exam Vitals/I&O's: Vital Signs Temp Pulse Resp BP Pulse Ox 36.5 C L 88 18 137/52 H 99 10/09/20 09:18 10/09/20 09:30 10/09/20 09:18 10/09/20 09:18 10/09/20 09:18 Oxygen Flow Rate (L/min) 2 Oxygen Delivery Method Nasal Cannula Weight: 77.9 kg Body Mass Index (BMI) 31.9 Intake and Output for Last 24 Hours 10/07/20 10/08/20 10/09/20 23:59 23:59 23:59 Intake Total 800 / 800 350 / 350 Balance 800 / 800 350 / 350 General: Alert, No apparent distress HEENT: Atraumatic, Normocephalic Oral: Moist Mucosa, No Gingival or Mucosal Lesions/ Ulcerations Lungs: Clear to auscultation, Diminished Cardiovascular: Regular rate, Regular Rhythm, Normal S1, Normal S2, No murmurs Abdomen: Bowel Sounds Present, Soft, Non Tender, Non-Distended, No Hepato-splenomegaly Extremities: No edema, No Calf Tenderness Laboratory Results 10/08/20 13:10: WBC 12.6 H, RBC 4.97, Hgb 14.7, Hct 45.5, MCV 91.5, MCH 29.6, MCHC 32.3, RDW Std Deviation 46.9 H, RDW Coeff of Haylie 14.0, Plt Count 301, MPV 10.2, Immature Gran % (Auto) 0.400, Neut % (Auto) 76.5 H, Lymph % (Auto) 15.9 L, [place] % (Auto) 5.6, Eos % (Auto) 1.1, Baso % (Auto) 0.5, Absolute Neuts (auto) 9.7 H, Absolute Lymphs (auto) 2.00, Nucleated RBC % 0 10/08/20 13:10: Sodium 140, Potassium 3.6, Chloride 109 H, Carbon Dioxide 26.0, Anion Gap 5, BUN 15, Creatinine 1.01, Estim Creat Clear Calc 41.90, Est GFR (MDRD) Af Amer 71, Est GFR (MDRD) Non-Af 59 L, BUN/Creatinine Ratio 14.9, Glucose 155 H, Calcium 8.8, Total Bilirubin 0.90, AST 28, ALT 31, Alkaline Phosphatase 125 H, Total Protein 8.0, Albumin 3.7, Globulin 4.3 H, Albumin/Globulin Ratio 0.9 10/08/20 13:10: PT 25.1 H, INR 2.4 10/08/20 17:05: POC Glucose 174 H 10/09/20 03:45: WBC 11.5 H, RBC 4.68, Hgb 13.5, Hct 42.4, MCV 90.6, MCH 28.8, MCHC 31.8 L, RDW Std Deviation 45.7 H, RDW Coeff of Haylie 13.8, Plt Count 284, MPV 10.3, Immature Gran % (Auto) 0.400, Neut % (Auto) 85.1 H, Lymph % (Auto) 11.[address] L, [place] % (Auto) 3.0, Eos % (Auto) 0.0, Baso % (Auto) 0.1, Absolute Neuts (auto) 9.8 H, Absolute Lymphs (auto) 1.31, Nucleated RBC % 0 10/09/20 03:45: PT 31.3 H, INR 3.1 10/09/20 03:45: Sodium 137, Potassium 3.9, Chloride 107, Carbon Dioxide 25.0, Anion Gap 5, BUN 17, Creatinine 0.82, Estim Creat Clear Calc 51.61, Est GFR (MDRD) Af Amer 90, Est GFR (MDRD) Non-Af 74, BUN/Creatinine Ratio 20.7 H, Glucose 184 H, Calcium 8.9, Total Bilirubin 0.50, AST 29, ALT 28, Alkaline Phosphatase 116, Total Protein 7.5, Albumin 3.3, Globulin 4.2, Albumin/Globulin Ratio 0.8 L Current Medications Acetaminophen (Acetaminophen 325 Mg Tablet) 650 mg PO Q6H PRN PRN PRN Reason: Pain Score 1-10/Temp > 100.7 F Albuterol Sulfate (Albuterol Ih 8.5 Gm (Proair) Inhaler (200 Puffs)) 1 puff INHALATION Q4H PRN PRN PRN Reason: DYSPNEA Atorvastatin Calcium (Atorvastatin Calcium 80 Mg Tablet) 80 mg PO QHS [facility]BY Last Admin: 10/08/20 21:28 Dose: 80 mg Documented by: Dexamethasone (Dexamethasone 4 Mg Tablet) [facility] Admin: 10/09/20 09:15 Dose: 6 mg Documented by: Fluoxetine HCl (Fluoxetine 20 Mg Capsule) 40 mg PO BID [facility] Last Admin: 10/09/20 09:14 Dose: 40 mg Documented by: Sodium Chloride () 250 mls @ 15 mls/hr IV .[id number] PRN PRN Reason: Saline Flush Sodium Chloride () 250 mls @ 15 mls/hr IV .[id number] PRN PRN Reason: Additional IVPB Infusion Losartan Potassium (Losartan Potassium 100 Mg Tablet) 100 mg PO DAILY [facility] Last Admin: 10/09/20 09:15 Dose: 100 mg Documented by: Metformin HCl (Metformin (Xr) 500 Mg Tablet) [facility] Admin: 10/09/20 09:14 Dose: 500 mg Documented by: Ondansetron HCl (Ondansetron 4 Mg/2 Ml Vial) 4 mg IV Q8H PRN PRN PRN Reason: NAUSEA/VOMITING Sodium Chloride (0.9% Saline Lock 10 Ml Syringe) 10 - 40 ml IV UD PRN PRN Reason: SALINE FLUSH Last Admin: 10/08/20 18:33 Dose: 10 ml Documented by: Tolterodine Tartrate (Tolterodine Tartrate 2 Mg Cap.Sa) 2 mg PO DAILY [facility] Last Admin: 10/09/20 09:15 Dose: 2 mg Documented by: Warfarin Sodium (Warfarin 6 Mg Tablet) 6 mg PO DAILY@1700 [facility] Last Admin: 10/08/20 18:32 Dose: 6 mg Documented by: Discharge Diet: No Restrictions Discharge Activity: Return to Normal Activity Call your doctor if you observe: Fever of 101 or Higher, Shortness of breath Home Medications: Medications to take at Discharge Albuterol IH (ProAir) [Proair Hfa] 1 puff INHALATION Q4H PRN PRN 02/05/19 Fluoxetine [Prozac] 40 mg PO BID 02/05/19 Glucosamine Sulfate Dipot Chlr [Glucosamine Sulfate] 1,000 mg PO DAILY 02/05/19 Losartan Potassium 100 mg PO DAILY 02/05/19 Metformin HCl [Metformin ER Osmotic] 500 mg PO DAILY 02/05/19 Multivit-Min/Iron/Folic/Lutein [Centrum Silver Women Tablet] 1 ea PO DAILY 02/05/19 [place]-3 Fatty Acids/Fish Oil [Fish Oil 1,000 mg Capsule] 1 ea PO DAILY 02/05/19 Warfarin Sodium 6 mg PO QHS 02/05/19 Rosuvastatin Calcium 40 mg PO QHS 10/15/19 Darifenacin Hydrobromide [Darifenacin ER] 7.5 mg PO DAILY 10/06/20 Dexamethasone 6 mg PO DAILY #8 tablet 10/09/20 Following Prescriptions Were Given to Patient: Dexamethasone 6 mg PO DAILY #8 tablet Transmission Status: Pending to [facility]/pharmacy #[id number] Other Amb Orders: COVID: Outpatient Monoclonal Antibody Referral Location: None Selected Primary Care Physician: Steffi Carlos DO [Primary Care Provider] - Within 2 Weeks Disposition: Home Minutes spent on discharge:: 28 Patient Condition:: Good Medical Necessity - Tobacco Use Smoking Status: Heavy Smoker (>10/day) Tobacco Use: Cigarettes Meaningful Use Info Meaningful Use Diagnoses (Choose all that apply): None applicable Inpatient E&M: [id number] [facility]
[2020-10-09 10:15] VITALS: O2SAT 91; O2SAT 92
--- NOTE | 2020-10-10 15:12 | CASEMGMT ---
Addendum entered by Monika Reilly 10/11/20 15:01: LEN MCKENNA attempted again to complete follow-up phone call, no answer again and unable to leave message. Original Note: LEN MCKENNA Discharge Follow-up Phone Call: JEAN CLAUDE: 9 Strata: 2 Call Date: 10/10/20 Discharge Date: 10/09/20 Time of Call: 1510 Duration: 1 min Admitting Diagnosis: COPD ex, Covid LEN MCKENNA attempted to complete follow-up phone call after recent hospitalization. No answer, no voicemail box to leave message. Will attempt again at later time.
== END 2020-10-09 12:45 | disposition home or self-care (01) | DRG 178 ==
LOC: ED 14:23 → ICU 14:54
PROVIDERS: Emergency Provider Emergency Medicine; PCP Family Medicine
DX: U07.1 COVID-19 (principal); J44.1 Chronic obstructive pulmonary disease with (acute) exacerbation; R09.02 Hypoxemia; I10 Essential (primary) hypertension; E11.9 Type 2 diabetes mellitus without complications; E66.9 Obesity, unspecified; Z68.32 Body mass index [BMI] 32.0-32.9, adult; F17.210 Nicotine dependence, cigarettes, uncomplicated; Z95.2 Presence of prosthetic heart valve; Z79.01 Long term (current) use of anticoagulants; Z79.84 Long term (current) use of oral hypoglycemic drugs; Z79.899 Other long term (current) drug therapy
CPT/HCPCS: 71045; 80053; 82962; 85025; 85610; 93005; 99285; 99406; A4216

== ENCOUNTER 2020-10-11 14:17 | Outpatient (CLI) | payer SELFPAY ==
[2020-10-11 14:37] VITALS: BP 124/77; PULSE 63; RESP 18; TEMP 36.1; O2SAT 96; BMI 32.3
[2020-10-11] MEDS: 0.9% Saline Lock 10 ML Syringe IV (14:49)
[2020-10-11 14:56] VITALS: BP 135/77; PULSE 67; RESP 18; TEMP 36.7; O2SAT 94
[2020-10-11 15:26] VITALS: BP 132/71; PULSE 59; RESP 18; TEMP 36.3; O2SAT 96
[2020-10-11] MEDS: Acetaminophen 325 MG Tablet 650 MG PO (15:55)
[2020-10-11 15:56] VITALS: BP 131/67; PULSE 70; RESP 18; TEMP 36.2; O2SAT 96
[2020-10-11 16:04] VITALS: BP 137/76; PULSE 59; RESP 18; TEMP 36.4; O2SAT 97
[2020-10-11 17:05] VITALS: BP 150/85; PULSE 60; RESP 18; TEMP 36.6; O2SAT 96
== END 2020-10-11 17:15 | disposition home or self-care (01) ==
LOC: ICUOUT 14:20 → ICU 14:21
PROVIDERS: PCP Family Medicine; Referring Provider Nurse Practitioner Acute Care; Visit Provider Nurse Practitioner Acute Care
DX: U07.1 COVID-19 (principal)
CPT/HCPCS: J7050; M0243; A4216; Q0240